=== PATIENT | female | born 1990 | race Caucasian/White ===

== ENCOUNTER 2016-09-01 21:21 | Emergency (ER) | payer MEDICAID, OTHER ==
[~2016-09-01] VITALS: Ht 170.2 cm; Wt 62.2 kg
[~2016-09-01 21:21] MED LIST: CYCL5TAB PO; FLAG250T PO; IBUP800T23 PO
[2016-09-01 21:50] VITALS: BP 124/75; PULSE 68; RESP 20; TEMP 98; O2SAT 97
[2016-09-01 21:59] VITALS: BP 124/75; PULSE 68; RESP 16; TEMP 98; O2SAT 100
[2016-09-01] MEDS ORDERED: SODIUM CHLOR 0.9% 1000 ML INJ 1,000 ML IV SCH (22:01)
--- NOTE | 2016-09-01 22:09 | PD ---
HPI Chief Complaint: Abdominal Pain Time Seen by Provider: 21:57 Travel History International Travel<30 days: No Contact w/Intl Traveler<30days: No Traveled to known affect area: No History of Present Illness HPI Patient is a 26-year-old female who presents to emergency room with complaints of abdominal pain for the past 5 days. Patient reports that for the past 5 days , she has had constant pain to her lower abdomen. Denies any nausea or vomiting with her symptoms, reports that she has been having episodes of diarrhea. Reports that she has not been on any antibiotics at this time. Reports no sick contacts, denies any recent travels or trips. Patient reports that she just had a on August 24, 2014, reports that she is having scant vaginal bleeding at this time. Denies any vaginal discharge. Reports that she has not been sexually active since her . Patient with no other complaints at this time. Denies dysuria, urinary urgency or frequency PFSH Past Medical History Heart Rhythm Problems: Yes Cardiovascular Problems: Yes (wore a 24 hour heart monitor once but no problems identified) Diminished Hearing: No ?: Not : 2 Para: 1 Past Surgical History Genitourinary Surgery: Yes ( on August 24, 2016) Family History Family History: Negative Social History Alcohol Use: Yes Tobacco Use: Yes Substance Use: Yes (MARIJUANA OCCAS) Allergies-Medications (Allergen,Severity, Reaction): Coded Allergies: No Known Allergies (Unverified , 10/17/15) Reported Meds & Prescriptions Reported Meds & Active Scripts Active Review of Systems General / Constitutional: No: Fever, Chills Eyes: No: Visual changes HENT: No: Headaches Cardiovascular: No: Chest Pain or Discomfort Respiratory: No: Shortness of Breath Gastrointestinal: Positive: Diarrhea, Abdominal Pain Genitourinary: No: Dysuria Musculoskeletal: No: Pain Skin: No Rash Neurologic: No: Weakness Psychiatric: No: Depression Endocrine: No: Polydipsia Hematologic/Lymphatic: No: Easy Bruising Physical Exam Narrative GENERAL: nad, nontoxic SKIN: Warm and dry. HEAD: Atraumatic. Normocephalic. EYES: Pupils equal and round. No scleral icterus. No injection or drainage. ENT: No nasal bleeding or discharge. Mucous membranes pink and moist. NECK: Trachea midline. No JVD. CARDIOVASCULAR: Regular rate and rhythm. No murmur appreciated. RESPIRATORY: No accessory muscle use. Clear to auscultation. Breath sounds equal bilaterally. GASTROINTESTINAL: Abdomen soft, patient with tenderness to lower abdomen, no rebound or guarding on exam MUSCULOSKELETAL: No obvious deformities. No clubbing. No cyanosis. No edema. NEUROLOGICAL: Awake and alert. No obvious cranial nerve deficits. Motor grossly within normal limits. Normal speech. PSYCHIATRIC: Appropriate mood and affect; insight and judgment normal. Data Data Last Documented VS Vital Signs Date Time Temp Pulse Resp B/P Pulse Ox O2 Delivery O2 Flow Rate FiO2 09/01/16 21:59 98.0 68 16 124/75 100 Orders Beta Hcg (Quant/Titer) (09/01/16 22:01) Complete Blood Count With Diff (09/01/16 22:) Comprehensive Metabolic Panel (09/01/16 22:) Lipase (09/01/16 22:01) Prothrombin Time / Inr (Pt) (09/01/16 22:) Act Partial Throm Time (Ptt) (09/01/16 22:) Urinalysis - C+S If Indicated (09/01/16 22:01) Ct Abd/Pel W Iv Contrast(Rout) (09/01/16 22:01) Iv Access Insert/Monitor (09/01/16 22:01) Ecg Monitoring (09/01/16 22:01) Oximetry (09/01/16 22:01) Morphine Inj (Morphine Inj) (09/01/16 22:15) Ondansetron Inj (Zofran Inj) (09/01/16 22:15) Sodium Chlor 0.9% 1000 Ml Inj (Ns 1000 M (09/01/16 22:01) Sodium Chloride 0.9% Flush (Ns Flush) (09/01/16 22:15) Ed Urine Pregnancytest Poc (09/01/16 22:01) Oral Contrast - Adult (09/01/16 22:05) Diatrizoate Liq ( Gastroview Liq) (09/01/16 22:23) Iohexol 350 Inj (Omnipaque 350 Inj) (09/01/16 23:50) Us Pelvis Comp W Transvaginal (09/01/16 ) Labs Laboratory Tests Test 09/01/16 22:10 White Blood Count 8.8 TH/MM3 Red Blood Count 5.06 MIL/MM3 Hemoglobin 15.0 GM/DL Hematocrit 46.5 % Mean Corpuscular Volume 91.9 FL Mean Corpuscular Hemoglobin 29.6 PG Mean Corpuscular Hemoglobin 32.2 % Concent Red Cell Distribution Width 13.0 % Platelet Count 377 TH/MM3 Mean Platelet Volume 8.6 FL Neutrophils (%) (Auto) 66.4 % Lymphocytes (%) (Auto) 26.6 % Monocytes (%) (Auto) 5.1 % Eosinophils (%) (Auto) 1.7 % Basophils (%) (Auto) 0.2 % Neutrophils # (Auto) 6.0 TH/MM3 Lymphocytes # (Auto) 2.3 TH/MM3 Monocytes # (Auto) 0.4 TH/MM3 Eosinophils # (Auto) 0.1 TH/MM3 Basophils # (Auto) 0.0 TH/MM3 CBC Comment DIFF FINAL Differential Comment Prothrombin Time 11.4 SEC Prothromb Time International 1.0 RATIO Ratio Activated Partial 26.6 SEC Thromboplast Time Urine Color YELLOW Urine Turbidity CLEAR Urine pH 6.0 Urine Specific [place] 1.025 Urine Protein TRACE mg/dL Urine Glucose (UA) NEG mg/dL Urine Ketones NEG mg/dL Urine Occult Blood NEG Urine Nitrite NEG Urine Bilirubin NEG Urine Leukocyte Esterase NEG Urine RBC 0-3 /hpf Urine WBC 3-5 /hpf Urine Squamous Epithelial 0-5 /hpf Cells Urine Bacteria RARE /hpf Microscopic Urinalysis Comment CULT NOT INDICATED Sodium Level 142 MEQ/L Potassium Level 3.3 MEQ/L Chloride Level 105 MEQ/L Carbon Dioxide Level 29.7 MEQ/L Anion Gap 7 MEQ/L Blood Urea Nitrogen 10 MG/DL Creatinine 0.85 MG/DL Estimat Glomerular Filtration 81 ML/MIN Rate Random Glucose 83 MG/DL Calcium Level 9.2 MG/DL Total Bilirubin 0.6 MG/DL Aspartate Amino Transf 17 U/L (AST/SGOT) Alanine Aminotransferase 21 U/L (ALT/SGPT) Alkaline Phosphatase 70 U/L Total Protein 8.0 GM/DL Albumin 3.9 GM/DL Lipase 150 U/L Human Chorionic Gonadotropin, 386 MIU/ML Quant MDM Medical Decision Making Medical Screen Exam Complete: Yes Emergency Medical Condition: Yes Interpretation(s) Vital Signs Date Time Temp Pulse Resp B/P Pulse Ox O2 Delivery O2 Flow Rate FiO2 09/01/16 21:59 98.0 68 16 124/75 100 09/01/16 21:50 98.0 68 20 124/75 97 Differential Diagnosis Appendicitis, retained products conception, cervicitis, UTI, colitis Narrative Course Patient is a 26-year-old female who presents to emergency room for evaluation of abdominal pain. She reports that she has been having increased abdominal pain for the past 5 days with associated diarrhea and cramping. Patient denies any fevers or chills, denies any nausea or vomiting. Patient with no sick contacts or recent ingestion of antibiotics. Patient does admit to having an on August 24, 2016. She denies any vaginal discharge, reports that she still has some scant bleeding from her , reports that she did not have any complications or pain after her . Patient with uncomfortable lower abdomen and evaluation, plan to obtain lab work , pelvic ultrasound ordered to evaluate for retained products of conception, CT of the abdomen and pelvis ordered for possible appendicitis versus colitis HCG Quant 386 - patient had on 08/24/16 - this number will need to be trended down, reviewed this with patient patient re-evaluated pt feeling much better at this time abdomen is soft, nt/nd, no peritoneal signs CBC & BMP Diagram 09/01/16 22:10 Last Impressions Abdomen/Pelvis CT 09/01/16 2201 Signed Impressions: Service Date/Time: Thursday, September 01, 2016 23:37 - CONCLUSION: 1. Nonspecific distended fluid-filled endometrial cavity. Mild edema in the adnexal regions bilaterally. 2. Nonobstructing right renal calculus. Kelvin Lang MD Pelvis Ultrasound 09/01/16 0000 Signed Impressions: Service Date/Time: August 00:04 - CONCLUSION: 1. Complex fluid within a distended endometrial cavity. No internal color Doppler flow. 2. Ovaries within normal limits. 3. Small amount of free fluid in the pelvis. Kelvin Lang MD Patient feeling much better at this time. Patient with resolution of abdominal pain. Reviewed all labs and all studies with patient in detail including all incidental findings. Copies of patient's studies were given to her. Signs and symptoms of when to return to the emergency room was reviewed with patient in detail. Patient understands need to have her hCG Quant trended. Patient will return to the emergency room as needed. Diagnosis Primary Impression: Abdominal pain Qualified Code: R10.30 - Lower abdominal pain Patient Instructions: General Instructions, Narcotic given in the ED Additional Instructions: Please provide patient with a copy of her lab work and studies at discharge Please have your academic administrator or primary care doctor trend your hCG Quant as it was 386 today Return to the emergency room as needed Return to emergency room if you have return of symptoms Please follow-up with your primary care doctor and 1-2 days Please bring a copy of your CT studies as well as all your lab work to your doctor's office for follow-up Med/Other Pt SpecificInfo: Prescription(s) given Scripts Ibuprofen 600 Mg [id number] Mg PO Q6H PRN (Pain/Inflammation) #40 TAB Ref 0 Prov:Alanis Santo DO 09/02/16 Disposition: 01 DISCHARGE HOME Condition: Stable Alanis Santo DO Sep 01, 2016 22:09
[2016-09-01] MEDS ORDERED: ONDANSETRON HCL 4 MG/2 ML VIAL IVP ONE (22:15)
[2016-09-01] MEDS ORDERED: MORPHINE SULFATE 4 MG/ML INJ IV PUSH ONE (22:15)
[2016-09-01] MEDS ORDERED: SODIUM CHLORIDE 0.9% FLUSH 5 ML FLUSH IVF PRN (22:15)
[2016-09-01 22:22] LABS: BASOPHIL % 0.2 % (0.0-2.0); BLOOD, URINE NEG (NEG); EOSINOPHIL # 0.1 TH/MM3 (0-0.4); EOSINOPHIL % 1.7 % (0.0-4.0); GLUCOSE,URINE NEG (NEG); HEMATOCRIT 46.5 % (35.0-46.0); HEMO FLAGS DIFF FINAL; KETONE, URINE NEG (NEG); LYMPH % 26.6 % (9.0-44.0); LYMPHOCYTE # 2.3 TH/MM3 (1.0-4.8); MEAN CELL VOLUME 91.9 FL (80.0-100.0); MEAN CORPUSCULAR HEMOGLOBIN 29.6 PG (27.0-34.0); MEAN CORPUSCULAR HGB CONC 32.2 % (32.0-36.0); MONO % 5.1 % (0.0-8.0); NEUT % 66.4 % (16.0-70.0); NITRITE,URINE NEG (NEG); PLATELET COUNT 377 TH/MM3 (150-450); RED BLOOD COUNT 5.06 MIL/MM3 (4.00-5.30); WHITE BLOOD COUNT 8.8 TH/MM3 (4.0-11.0)
[2016-09-01] MEDS ORDERED: DIATRIZOATE MEGLUM/DIATRIZOATE SOD 9 ML CUP ONE (22:23)
[2016-09-01 22:30] LABS: URINE COLOR YELLOW (YELLW/STRAW)
[2016-09-01 22:32] LABS: BACTERIA, URINE RARE /hpf; COMMENT (UR) CULT NOT INDICATED; CULTURE IF INDICATED CULT NOT INDICATED; RBC, URINE 0-3 /hpf (0-3); SQUAMOUS EPITHELIAL CELL URINE 0-5 /hpf (0-5)
[2016-09-01 22:34] LABS: CHLORIDE 105 MEQ/L (98-107); POTASSIUM 3.3 MEQ/L (3.5-5.1); SODIUM (NA) 142 MEQ/L (136-145)
[2016-09-01 22:38] LABS: ANION GAP 7 MEQ/L (5-15); BICARBONATE 29.7 MEQ/L (21.0-32.0); BLOOD UREA NITROGEN 10 MG/DL (7-18)
[2016-09-01 22:40] LABS: APTT (PATIENT) 26.6 SEC (24.3-30.1); PROTHROMBIN TIME - PATIENT 11.4 SEC (9.8-11.6)
[2016-09-01 22:41] LABS: ALT (GPT) 21 U/L (10-53); AST (GOT) 17 U/L (15-37); GLOMERULAR FILTRATION RATE 81 ML/MIN (>89)
[2016-09-01 22:43] LABS: TOTAL BILIRUBIN ADULT 0.6 MG/DL (0.2-1.0)
[2016-09-01 22:44] LABS: ALKALINE PHOSPHATASE 70 U/L (45-117)
[2016-09-01 22:46] LABS: BETA HCG QUANT 386 MIU/ML (0-5)
[2016-09-01] MEDS ORDERED: IOHEXOL 350 MG/ML 10 ML VIAL (for RAD DIAG) IV ONE (23:50)
--- NOTE | 2016-09-02 00:12 | RADHPO ---
EXAM DATE/TIME: 09/01/2016 23:37 [facility] COMPARISON: No previous studies available for comparison. INDICATIONS : Lower abdominal pain status post one week. IV CONTRAST: 100 cc Omnipaque 350 (iohexol) IV ORAL CONTRAST: Prescribed oral contrast ingested. RADIATION DOSE: 7.86 CTDIvol (mGy) MEDICAL HISTORY : None SURGICAL HISTORY : . ENCOUNTER: Initial ACUITY: 1 week PAIN SCALE: 7/10 LOCATION: Bilateral lower quadrant abdomen TECHNIQUE: Volumetric scanning of the abdomen and pelvis was performed. Using automated exposure control and ad justment of the mA and/or kV according to patient size, radiation dose was kept as low as reasonably achievable to obtain optimal diagnostic quality images. FINDINGS: LOWER LUNGS: The visualized lower lungs are clear. LIVER: Homogeneous density without lesion. There is no dilation of the biliary tree. No calcified gallston es. SPLEEN: Normal size without lesion. PANCREAS: Within normal limits. KIDNEYS: 2 mm calculus in the midpole of the right kidney. No evidence of hydronephrosis. ADRENAL GLANDS: Within normal limits. VASCULAR: There is no aortic aneurysm. BOWEL/MESENTERY: No evidence of bowel dilatation. No free air or free fluid. Appendix is not identified. ABDOMINAL WALL: Within normal limits. RETROPERITONEUM: There is no lymphadenopathy. BLADDER: No wall thickening or mass. REPRODUCTIVE: Enlarged uterus with fluid-filled endometrial cavity measuring 2.4 cm in thickness. No gas is seen in the endometrial cavity. Mild edema in the adnexal regions bilaterally. INGUINAL: There is no lymphadenopathy or hernia. MUSCULOSKELETAL: Within normal limits for patient age. CONCLUSION: 1. Nonspecific distended fluid-filled endometrial cavity. Mild edema in the adnexal regions bilateral ly. 2. Nonobstructing right renal calculus. Kelvin Lang MD on September 02, 2016 at 0:01 Board Certified Radiologist. This report was verified electronically.
--- NOTE | 2016-09-02 01:12 | RADHPO ---
EXAM DATE/TIME: 09/02/2016 00:04 [facility] COMPARISON: No previous studies available for comparison. EXTERNAL COMPARISON : INDICATIONS : Pelvic pain. Patient had on 08/24/16. MEDICAL HISTORY : . SURGICAL HISTORY : Elective . Tooth extraction. ENCOUNTER: Initial ACUITY: 4-6 days PAIN SCORE: 5/10 LOCATION: Bilateral pelvis MEASUREMENTS: UTERUS: 8.5 x 6.2 x 5.0 cm ENDOMETRIAL STRIPE: 6 mm RIGHT OVARY: 2.9 x 2.3 x 1.8 cm LEFT OVARY: 3.8 x 2.1 x 2.1 cm FINDINGS: UTERUS: Heterogeneous mixed echogenicity fluid is seen within the distended endometrial cavity. No rima buddy identified. No internal color Doppler flow. RIGHT OVARY: Ovary contains no mass or significant cystic lesion. LEFT OVARY: Ovary contains no mass or significant cystic lesion. MISCELLANEOUS: Small amount of free fluid. CONCLUSION: 1. Complex fluid within a distended endometrial cavity. No internal color Doppler flow. 2. Ovaries within normal limits. 3. Small amount of free fluid in the pelvis. Kelvin Lang MD on September 02, 2016 at 1:08 Board Certified Radiologist. This report was verified electronically.
[2016-09-02] MEDS ORDERED: IBUP-232 PO (01:31)
== END 2016-09-02 03:47 | disposition home or self-care (01) ==
LOC: PHED 21:21
DX: R10.30 Lower abdominal pain, unspecified (principal); R19.7 Diarrhea, unspecified; N93.8 Other specified abnormal uterine and vaginal bleeding; Z72.0 Tobacco use; F12.90 Cannabis use, unspecified, uncomplicated
CPT/HCPCS: 74177; 76830; 76856; 80053; 81001; 83690; 84702; 84703; 85025; 85610; 85730; 96361; 96374; 96375; 99284; J2270; J2405; J7030; Q9963; Q9967